=== PATIENT | female | born 1980 | race Caucasian/White ===

== ENCOUNTER 2019-07-22 00:19 | Emergency (ER) | payer SELFPAY ==
[~2019-07-22] VITALS: Ht 170.2 cm; Wt 50.3 kg
[2019-07-22 00:34] VITALS: BP 130/84
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
[2019-07-22 01:17] VITALS: BP 130/84
--- NOTE | 2019-07-22 01:18 | NUR ---
ED Nurse Note: Pt cleared by health care Provider for discharge. DC instructions were given and explained to pt and officers she was in custody of. understanding of teachings was verbalized by all members present. All medical devices such as ID band removed. Pt is AAO x4, ambulatory and left with all personal belongings.
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
== END 2019-07-22 01:17 ==
LOC: EMR 00:52
DX: Z02.89 Encounter for other administrative examinations (principal); S09.90XA Unspecified injury of head, initial encounter; Y04.2XXA Assault by strike against or bumped into by another person, initial encounter; Y93.9 Activity, unspecified; Y92.9 Unspecified place or not applicable; Z88.0 Allergy status to penicillin
CPT/HCPCS: 70450; 99284